=== PATIENT | male | born 1995 | race Caucasian/White ===

== ENCOUNTER 2019-08-27 11:24 | Emergency (ER) | payer OTHER ==
[~2019-08-27] VITALS: Ht 185.4 cm; Wt 68.0 kg
[2019-08-27] MEDS ORDERED: KETOROLAC 30 MG/1 ML IM ONE (12:00)
[2019-08-27] MEDS ORDERED: KETOROLAC 60 MG/2 ML ONE (12:05)
[2019-08-27 12:30] LABS: MEAN CORPUSCULAR VOLUME 93.8 fL (81-97); MEAN PLATELET VOLUME 8.6 fL (7.4-10.4); PLATELET COUNT 181 x10^3/uL (130-400); RED BLOOD COUNT 5.06 x10^6/uL (4.38-5.82)
[2019-08-27 12:42] LABS: ALBUMIN 4.4 g/dL (3.4-5.0); ANION GAP 4 mmol/L (5-15); CALCIUM 9.5 mg/dL (8.5-10.1); CHLORIDE 106 mmol/L (98-107)
[2019-08-27 12:46] LABS: BASOPHILS # (AUTO) 0.42 x10^3/uL (0-0.1); BASOPHILS % (AUTO) 2 % (0-1); EOSINOPHILS # (AUTO) 0.08 x10^3/uL (0-0.4); EOSINOPHILS % (AUTO) 0 % (1-7); LYMPHOCYTES # (AUTO) 0.99 x10^3/uL (1-3.4); LYMPHOCYTES % (AUTO) 5 % (22-44); MD SCAN; MONOCYTES % (AUTO) 4 % (2-9); NEUTROPHILS # (AUTO) 17.89 x10^3/uL (1.8-6.8); NEUTROPHILS % (AUTO) 89 % (42-75)
[2019-08-27 12:47] LABS: ALANINE AMINOTRANSFERASE 17 U/L (12-78); ALKALINE PHOSPHATASE 54 U/L (45-117); BILIRUBIN,TOTAL 0.8 mg/dL (0.2-1.0); CREATININE 0.97 mg/dL (0.7-1.3); TOTAL PROTEIN 8.1 g/dL (6.4-8.2); TROPONIN I < 0.015 ng/mL (0.000-0.045)
[2019-08-27 13:07] LABS: HCT (SEDRATE) 47.5 % (39.2-51.8)
--- NOTE | 2019-08-27 13:20 | NUR ---
REPORT FROM JAMES, ASSUME CARE OF PT AT THIS TIME.
[2019-08-27 13:41] VITALS: BP 108/70
--- NOTE | 2019-08-27 13:41 | NUR ---
PT STATES PAIN DOWN TO 2-3/10 FOLLOWING TORADOL SHOT. VS UPDATED IN COMPUTER. CALL LIGHT WITHIN REACH. AWAITING ESR RESULT.
--- NOTE | 2019-08-27 13:47 | NUR ---
ALL RESULTS BACK, PT FOR RECHECK.
== END 2019-08-27 14:11 | disposition home or self-care (01) ==
LOC: ED 13:18
DX: R07.89 Other chest pain (principal); D72.829 Elevated white blood cell count, unspecified
CPT/HCPCS: 36415; 71046; 80053; 84484; 85025; 85651; 93005; 96372; 99285; J1885